=== PATIENT | female | born 1985 | race Caucasian/White ===

== ENCOUNTER → 2022-04-06 | Outpatient (CLI) | payer BC, SELFPAY ==
--- NOTE | 2022-04-06 13:04 | US_ITS ---
STUDY: SUPERFICIAL ULTRASOUND - RIGHT LOWER EXTREMITY. REASON FOR EXAM: Female, 36 years old. HEMATOMA AND CONTUSION TIB/FIB TECHNIQUE: A superficial ultrasound was performed with real-time and static nick-scale imaging. COMPARISON: Tib-fib Radiographs 03/27/2022. FINDINGS: In the pretibial soft tissues, a subcentimeter phlebolith is again demonstrated, 4 mm diameter. An area of redness and palpable lump more inferiorly near the ankle was also imaged. This region showed mild soft tissue edema but no focal fluid collection or mass. US/Ext Non Vasc Limited/Soft Tiss IMPRESSION: No fluid collection or mass. Mild edema on the anterior aspect of the ankle. If there is clinical suspicion for ligamentous or other soft tissue injury MRI ankle without IV contrast would best evaluate. Phlebolith in the pretibial soft tissues. Electronically Signed: Jason Nieves MD at 6:07 EDT Reading Location ID and State: [facility] / [place] Tel , Service support ,
== END | disposition home or self-care (01) ==
LOC: US 13:02
PROVIDERS: PCP Internal Medicine; Referring Provider Internal Medicine; Visit Provider Internal Medicine
DX: T14.8XXA Other injury of unspecified body region, initial encounter (principal)
CPT/HCPCS: 76882

== ENCOUNTER → 2022-05-25 | Outpatient (CLI) | payer BC, SELFPAY ==
--- NOTE | 2022-05-25 13:45 | MRI_ITS ---
PROCEDURE: MRI LOWER EXTREMITY RIGHT TIBIA/FIBULA REASON FOR EXAM: Female, 36 years old. Pain,swelling and ecchymosis of distal anterior RIGHT tib/fib x 5 months, NKI TECHNIQUE: Standardized fat and water weighted pulse sequences were obtained in all 3 orthogonal planes. COMPARISON: X-ray of the right tibia and fibula dated March 27, 2022. Right lower extremity soft tissue ultrasound dated April 06, 2022. FINDINGS: Mild to moderate subcutaneous edema is present over the distal one third aspect of the tibia, extending to the medial side of ankle joint. Normal tibia and fibula, without a periosteal, cortical or cancellous marrow abnormality. No stress edema or fractures are present. There is no evidence of osteomyelitis. Normal anterior, lateral, and posterior calf compartments, with normal muscles, crural fascia and intermuscular septa. No intramuscular edema or fluid collections are present. There is no solid, cystic or lipomatous mass lesion of the subcutis adipose space. MRI/Lower Ext/No Jt/w/o IMPRESSION: 1. Mild to moderate subcutaneous edema over the distal one third aspect of the tibia, extending to the medial side of ankle joint. Electronically Signed: Mukesh Ravi MD at 15:36 EDT ,
== END | disposition home or self-care (01) ==
PROVIDERS: PCP Internal Medicine; Visit Provider Orthopaedic Surgery
DX: M79.661 Pain in right lower leg (principal); M85.661 Other cyst of bone, right lower leg
CPT/HCPCS: 73718